=== PATIENT | female | born 1960 | race Caucasian/White ===

== ENCOUNTER → 2018-07-31 | Outpatient (CLI) | payer OTHER ==
[~2018-07-31] MED LIST: CLOP75TA52; WARF6TAB PO; WARF6TAB47 PO
[2018-07-31 08:46] LABS: BASOPHILS # (AUTO) 0.04 x10^3/uL (0-0.1); BASOPHILS % (AUTO) 1 % (0-1); EOSINOPHILS # (AUTO) 0.23 x10^3/uL (0-0.4); EOSINOPHILS % (AUTO) 3 % (1-7); LYMPHOCYTES # (AUTO) 2.09 x10^3/uL (1-3.4); LYMPHOCYTES % (AUTO) 31 % (22-44); MD NO; MEAN CORPUSCULAR HEMOGLOBIN 30.7 pg (27.0-34.8); MEAN CORPUSCULAR HGB CONC 34.4 g/dL (32.4-35.8); MEAN CORPUSCULAR VOLUME 89.2 fL (80-100); MEAN PLATELET VOLUME 7.8 fL (7.4-10.4); MONOCYTES # (AUTO) 0.41 x10^3/uL (0.2-0.8); MONOCYTES % (AUTO) 6 % (2-9); NEUTROPHILS # (AUTO) 3.96 x10^3/uL (1.8-6.8); NEUTROPHILS % (AUTO) 59 % (42-75); PLATELET COUNT 206 x10^3/uL (130-400); RED CELL DISTRIBUTION WIDTH 14.1 % (9.6-15.2)
[2018-07-31 08:57] LABS: ANION GAP 5 mmol/L (5-15); CALCIUM 8.5 mg/dL (8.5-10.1); CHLORIDE 110 mmol/L (98-107); CREATININE 0.87 mg/dL (0.55-1.02)
== END | disposition home or self-care (01) ==
LOC: STAR 08:02
PROVIDERS: ATTEND Surgery
DX: Z01.818 Encounter for other preprocedural examination (principal)
CPT/HCPCS: 36415; 80048; 85025

== ENCOUNTER 2018-08-07 06:40 | Day surgery (SDC) | payer OTHER ==
[~2018-08-07] VITALS: Ht 180.3 cm; Wt 78.6 kg
[2018-08-07 06:51] VITALS: BP 131/77
[2018-08-07] MEDS ORDERED: D5%-0.45% NACL 1,000 ML IV SCH ×2 (06:58→08:56)
[2018-08-07] MEDS ORDERED: LIDOCAINE-MPF 1%, 5ML ONE ×2 (07:11)
[2018-08-07] MEDS ORDERED: MIDAZOLAM 1 MG/ML, 5ML ONE (07:44)
[2018-08-07] MEDS ORDERED: FENTANYL PF 100 MCG/2ML ONE (07:44)
[2018-08-07] MEDS ORDERED: NALOXONE 1 MG/ML, 2ML ONE (07:44)
[2018-08-07] MEDS ORDERED: HEPARIN 1,000 UNITS/ML, 10ML ONE (07:44)
[2018-08-07] MEDS ORDERED: NITROGLYCERIN 5 MG/ML, 10ML ONE (07:44)
[2018-08-07] MEDS ORDERED: FLUMAZENIL 0.1 MG/1 ML, 5ML ONE (07:44)
[2018-08-07 07:45] LABS: INTERNATIONAL NORMALIZED RATIO 2.06 (0.93-1.1); PROTHROMBIN TIME 21.2 Seconds (9.6-11.5)
[2018-08-07] MEDS ORDERED: PROTAMINE SULFATE 10 MG/ML, 25ML ONE (07:45)
[2018-08-07] MEDS ORDERED: ONDANSETRON 2MG/ML, 2ML ONE (08:14)
[2018-08-07] MEDS ORDERED: ONDANSETRON 2MG/ML, 2ML IV PRN (09:00)
[2018-08-07] MEDS ORDERED: HYDROcodone/APAP 5/325 TABLET PO PRN (09:00)
[2018-08-07] MEDS ORDERED: VISIPAQUE 270 MG/ML, 150ML BOTTLE ONE (09:07)
== END 2018-08-07 12:15 | disposition home or self-care (01) ==
LOC: RAD 06:40 → UNDOADMOB 08:56 → ORIP 08:56 → RAD 12:15
PROVIDERS: ATTEND Surgery
DX: I70.211 Atherosclerosis of native arteries of extremities with intermittent claudication, right leg (principal); F17.200 Nicotine dependence, unspecified, uncomplicated; Z90.49 Acquired absence of other specified parts of digestive tract; Z98.890 Other specified postprocedural states; Z86.718 Personal history of other venous thrombosis and embolism; Z88.8 Allergy status to other drugs, medicaments and biological substances
CPT/HCPCS: 36245; 36415; 37220; 75630; 76937; 85610; 99156; 99157; C1725; C1751; C1769; C1894; J2250; J2405; J3010; Q9966; J1644; J2720; J2310

== ENCOUNTER 2018-08-24 01:58 | Emergency (ER) | payer OTHER ==
[~2018-08-24] VITALS: Ht 180.3 cm; Wt 77.0 kg
[2018-08-24] MEDS ORDERED: TRAM100T13 PO (02:07)
[2018-08-24 02:43] LABS: INTERNATIONAL NORMALIZED RATIO 3.51 (0.93-1.1); PROTHROMBIN TIME 35.5 Seconds (9.6-11.5)
[2018-08-24] MEDS ORDERED: OXYcodone/APAP 5/325MG TABLET ONE (03:08)
[2018-08-24] MEDS ORDERED: IBUPROFEN 200 MG TABLET ONE (03:09)
[2018-08-24] MEDS ORDERED: IBUPROFEN 200 MG TABLET PO ONE (03:30)
[2018-08-24] MEDS ORDERED: OXYcodone/APAP 5/325MG TABLET PO ONE (03:30)
[2018-08-24 03:35] LABS: BASOPHILS # (AUTO) 0.07 x10^3/uL (0-0.1); BASOPHILS % (AUTO) 1 % (0-1); EOSINOPHILS # (AUTO) 0.16 x10^3/uL (0-0.4); EOSINOPHILS % (AUTO) 2 % (1-7); HCT (SEDRATE) 42.7 % (34.6-47.8); LYMPHOCYTES # (AUTO) 1.53 x10^3/uL (1-3.4); LYMPHOCYTES % (AUTO) 17 % (22-44); MD NO; MEAN CORPUSCULAR HEMOGLOBIN 30.7 pg (27.0-34.8); MEAN CORPUSCULAR VOLUME 87.9 fL (80-100); MEAN PLATELET VOLUME 7.9 fL (7.4-10.4); MONOCYTES # (AUTO) 0.55 x10^3/uL (0.2-0.8); MONOCYTES % (AUTO) 6 % (2-9); NEUTROPHILS # (AUTO) 6.89 x10^3/uL (1.8-6.8); NEUTROPHILS % (AUTO) 75 % (42-75); PLATELET COUNT 293 x10^3/uL (130-400); RED BLOOD COUNT 4.83 x10^6/uL (3.82-5.3); RED CELL DISTRIBUTION WIDTH 13.6 % (9.6-15.2)
[2018-08-24 03:44] LABS: ALBUMIN 3.7 g/dL (3.4-5.0); ANION GAP 9 mmol/L (5-15); CALCIUM 8.9 mg/dL (8.5-10.1); CHLORIDE 109 mmol/L (98-107); CREATININE 0.82 mg/dL (0.55-1.02)
[2018-08-24 03:45] LABS: TROPONIN I < 0.015 ng/mL (0.000-0.045)
[2018-08-24 05:31] VITALS: BP 114/74
== END 2018-08-24 05:32 | disposition home or self-care (01) ==
LOC: ED 02:59
DX: G56.02 Carpal tunnel syndrome, left upper limb (principal); M79.632 Pain in left forearm; M25.532 Pain in left wrist; R93.6 Abnormal findings on diagnostic imaging of limbs
CPT/HCPCS: 29260; 36415; 80048; 82040; 84484; 85025; 85610; 85651; 85730; 86140; 93005; 99284